=== PATIENT | male | born 2000 | race Caucasian/White ===

== ENCOUNTER 2022-04-07 23:02 | Emergency (ER) | payer BC, OTHER ==
[~2022-04-07] VITALS: Ht 187 cm; Wt 74.0 kg
[2022-04-07 23:12] VITALS: BP 127/63
--- NOTE | 2022-04-07 23:20 | ED General ---
General Stated Complaint: TOOK SOME DRUGS,PANIC ATTACK Source of Information: Patient, Other (Friend) History of Present Illness Date Seen by Provider: Apr 07, 2022 Time Seen by Provider: 23:05 Initial Comments 22-year-old male who is otherwise healthy presents emergency department for altered mentation, facial injury. He states he fell out of the bed. He hurts when he has his left eye at the area of an abrasion. He has no blurred or double vision. He has been drinking heavily this evening and used cocaine. His friend was concerned and wanted him checked out. Patient is alert, oriented but does have slurred speech. Allergies and Home Medications Allergies Coded Allergies: No Known Drug Allergies (Unverified , 04/07/22) Patient Home Medication List Home Medication List Reviewed: Yes Review of Systems Review of Systems Constitutional: no symptoms reported EENTM: no symptoms reported Respiratory: no symptoms reported Cardiovascular: no symptoms reported Gastrointestinal: no symptoms reported Genitourinary: no symptoms reported Musculoskeletal: other (Facial pain) Skin: no symptoms reported Psychiatric/Neurological: No Symptoms Reported Hematologic/Lymphatic: No Symptoms Reported Immunological/Allergic: no symptoms reported Past [id number] Hx Patient Social History Tobacco Use?: No Use of E-Cig and/or Vaping dev: No Substance use?: Yes Substance type: Other (Cocaine) Alcohol Use?: Yes Family Medical History Reviewed Nursing Family Hx No Pertinent Family Hx Physical Exam Vital Signs Vital Signs - First Documented 04/07/22 23:12 Temp 36.7 Pulse 75 Resp 16 B/P (MAP) 127/63 (84) Pulse Ox 96 O2 Delivery Room Air Capillary Refill : Height, Weight, BMI Height: '" Weight: lbs. oz. kg; BMI Method: General Appearance: No Apparent Distress, WD/WN HEENT: PERRL/EOMI, TMs Normal, Normal ENT Inspection, Pharynx Normal Neck: Full Range of Motion, Normal Inspection, Non Tender, Supple Respiratory: Chest Non Tender, Lungs Clear, Normal Breath Sounds, No Accessory Muscle Use, No Respiratory Distress Cardiovascular: Regular Rate, Rhythm, No Edema, No Gallop, No JVD, No Murmur, Normal Peripheral Pulses Gastrointestinal: Normal Bowel Sounds, No Organomegaly, No Pulsatile Mass, Non Tender, Soft Back: Normal Inspection, No CVA Tenderness, No Vertebral Tenderness Extremity: Normal Capillary Refill, Normal Inspection, Normal Range of Motion, Non Tender, No Calf Tenderness Skin: Other (Small abrasion inferior to the left eye.) Progress/Results/Core Measures Suspected Sepsis SIRS Temperature: Pulse: Respiratory Rate: Laboratory Tests 04/07/22 23:16: White Blood Count 10.6 Blood Pressure / Mean: Laboratory Tests 04/07/22 23:16: Creatinine 1.01, Platelet Count 245 Results/Orders Lab Results Laboratory Tests Test 04/07/22 23:16 Range/Units White Blood Count 10.6 4.3-11.0 10^3/uL Red Blood Count 4.25 L 4.30-5.52 10^6/uL Hemoglobin 14.0 13.3-17.7 g/dL Hematocrit 40 40-54 % Mean Corpuscular Volume 95 80-99 fL Mean Corpuscular Hemoglobin 33 25-34 pg Mean Corpuscular Hemoglobin Concent 35 32-36 g/dL Red Cell Distribution Width 13.2 10.0-14.5 % Platelet Count 245 130-400 10^3/uL Mean Platelet Volume 8.1 L 9.0-12.2 fL Immature Granulocyte % (Auto) 0 % Neutrophils (%) (Auto) 51 42-75 % Lymphocytes (%) (Auto) 40 12-44 % Monocytes (%) (Auto) 6 0-12 % Eosinophils (%) (Auto) 2 0-10 % Basophils (%) (Auto) 1 0-10 % Neutrophils # (Auto) 5.4 1.8-7.8 10^3/uL Lymphocytes # (Auto) 4.3 H 1.0-4.0 10^3/uL Monocytes # (Auto) 0.6 0.0-1.0 10^3/uL Eosinophils # (Auto) 0.2 0.0-0.3 10^3/uL Basophils # (Auto) 0.1 0.0-0.1 10^3/uL Immature Granulocyte # (Auto) 0.0 0.0-0.1 10^3/uL Sodium Level 142 135-145 MMOL/L Potassium Level 3.9 3.6-5.0 MMOL/L Chloride Level 107 98-107 MMOL/L Carbon Dioxide Level 20 L 21-32 MMOL/L Anion Gap 15 H 5-14 MMOL/L Blood Urea Nitrogen 7 7-18 MG/DL Creatinine 1.01 0.60-1.30 MG/DL Estimat Glomerular Filtration Rate 109 BUN/Creatinine Ratio 7 Glucose Level 96 70-105 MG/DL Calcium Level 8.8 8.5-10.1 MG/DL My Orders Orders - SID BERNAL DO Ct Head Wo (04/07/22 23:16) Basic Metabolic Panel (04/07/22 23:16) Cbc With Automated Diff (04/07/22 23:16) Ns Iv 1000 Ml (Sodium Chloride 0.9%) (04/07/22 23:30) Vital Signs/I&O 04/07/22 23:12 Temp 36.7 Pulse 75 Resp 16 B/P (MAP) 127/63 (84) Pulse Ox 96 O2 Delivery Room Air Capillary Refill : Departure Communication (Admissions) Patient is alert, oriented. He does have small abrasions to the left side of his face. CT scan is negative for any acute injuries. Altered mentation secondary to drug use today as well as alcohol. Electrolytes are normal as of the rest of his labs. To be discharged home with his friend who is staying the night with him. Impression Primary Impression: Alcohol intoxication Qualified Codes: F10.920 - Alcohol use, unspecified with intoxication, uncomplicated Additional Impression: Contusion of face Qualified Codes: S00.83XA - Contusion of other part of head, initial encounter Disposition: 01 HOME, SELF-CARE Condition: Stable Departure-Patient Inst. Add. Discharge Instructions: Drink plenty of fluids. Return to the emergency department for any severe concerns. SID BERNAL DO Apr 07, 2022 23:20
[2022-04-07 23:22] LABS: BASOPHILS # (AUTO) 0.1 10^3/uL (0.0-0.1); BASOPHILS % (AUTO) 1 % (0-10); EOSINOPHILS # (AUTO) 0.2 10^3/uL (0.0-0.3); EOSINOPHILS % (AUTO) 2 % (0-10); HEMATOCRIT 40 % (40-54); LYMPHOCYTES # (AUTO) 4.3 10^3/uL (1.0-4.0); LYMPHOCYTES % (AUTO) 40 % (12-44); MEAN CORPUSCULAR HEMOGLOBIN 33 pg (25-34); MEAN CORPUSCULAR HGB CONC 35 g/dL (32-36); MEAN CORPUSCULAR VOLUME 95 fL (80-99); MEAN PLATELET VOLUME 8.1 fL (9.0-12.2); MONOCYTES # (AUTO) 0.6 10^3/uL (0.0-1.0); MONOCYTES % (AUTO) 6 % (0-12); NEUTROPHILS # (AUTO) 5.4 10^3/uL (1.8-7.8); NEUTROPHILS % (AUTO) 51 % (42-75); PLATELET COUNT 245 10^3/uL (130-400); WHITE BLOOD COUNT 10.6 10^3/uL (4.3-11.0)
[2022-04-07] MEDS ORDERED: NS IV 1000 ML 1,000 ML IV SCH (23:30)
[2022-04-07 23:33] LABS: POTASSIUM 3.9 MMOL/L (3.6-5.0)
[2022-04-07 23:34] LABS: CALCIUM 8.8 MG/DL (8.5-10.1)
[2022-04-07 23:38] LABS: CREATININE SERUM 1.01 MG/DL (0.60-1.30)
--- NOTE | 2022-04-08 08:24 | Diagnostic Imaging Report ---
PROCEDURE: CT head without contrast. TECHNIQUE: Multiple contiguous axial images were obtained through the brain without the use of intravenous contrast. Auto Exposure Controls were utilized during the CT exam to meet ALARA standards for radiation dose reduction. INDICATION: Syncope. FINDINGS: The ventricles and sulci are within normal limits. There is no hydrocephalus or cerebral edema. There is no midline shift or mass effect. There is no intracranial mass, hemorrhage, or extra-axial fluid collection. The visualized paranasal sinuses and mastoid air cells are clear. There are no regional areas of decreased attenuation appreciated to suggest an acute CVA. IMPRESSION: No acute intracranial abnormality. Dictated by: Dictated on workstation # [id number]
== END 2022-04-08 00:23 | disposition home or self-care (01) ==
LOC: ER 23:06
DX: S00.12XA Contusion of left eyelid and periocular area, initial encounter (principal); F10.129 Alcohol abuse with intoxication, unspecified; W06.XXXA Fall from bed, initial encounter
CPT/HCPCS: 36415; 70450; 80048; 85025